=== PATIENT | female | born 1970 | race Hispanic/Latino ===

== ENCOUNTER 2023-10-09 11:29 | Outpatient (CLI) | payer OTHER | END 2023-10-09 11:30 | disposition home or self-care (01) | LOC: BICRAD 11:29 | PROVIDERS: ATTEND Nurse Practitioner Family | DX: M25.562 Pain in left knee (principal); M17.12 Unilateral primary osteoarthritis, left knee ==

== ENCOUNTER 2024-01-04 01:26 | Inpatient (IN) | payer SELFPAY ==
[2024-01-04 02:20] LABS: #Basophils 0.03 10x3/uL (0.0-0.2); #Eosinphils Less than 0.03 10x3/uL (0.0-0.7); %Basophils 0.2 % (0.0-1.0); %Lymphocytes 13.6 % (21.0-51.0); %Monocytes 6.7 % (0.0-10.0); %Neutrophils 78.7 % (42.0-75.0); Hematocrit 47.9 % (36.0-47.0); Hemoglobin 15.9 g/dL (12.0-16.0); Mean Corpuscular HGB CONC 33.2 g/dL (32.0-36.0); Mean Corpuscular Hemoglobin 28.9 pg (27.0-31.0); Mean Corpuscular Volume 86.9 fL (78.0-98.0); Mean Platelet Volume 8.8 fL (7.4-10.4); Platelet Count 367 10x3/uL (130-400); RBC Distribution Width 13.2 % (11.5-14.5); Red Blood Cell (RBC) Count 5.51 mill/uL (4.20-5.40)
[2024-01-04] MEDS ORDERED: Ketorolac Tromethamine 30 MG (1 mL) VIAL ONE (02:32)
[2024-01-04] MEDS ORDERED: Ondansetron PF 4 MG/2 ML Vial ONE (02:32)
[2024-01-04 02:38] LABS: ALT (SGPT) 13 U/L (8-55); AST (SGOT) 20 U/L (5-34); Alkaline Phosphatase 68 U/L (40-110); Anion Gap 19 mmol/L (10-20); BUN (Urea Nitrogen) 17 mg/dL (9.8-20.1); Bilirubin, Total 0.3 mg/dL (0.2-1.2); Calc. Creatinine Clearance 0 mL/min (70-130); Calcium 8.3 mg/dL (7.8-10.44); Carbon Dioxide 13 mmol/L (22-29); Chloride 104 mmol/L (98-107); Estimated GFR 55; Globulin 4.9 g/dL (2.4-3.5); Glucose 240 mg/dL (70-105); Potassium 4.4 mmol/L (3.5-5.1); Protein, Total 7.9 g/dL (6.0-8.3); Sodium 132 mmol/L (136-145)
[2024-01-04 02:43] LABS: Troponin I 0.183 ng/mL (< 0.028)
[2024-01-04] MEDS ORDERED: Piperacillin/Tazobactam 3.375 GM VIAL ONE (04:25)
[2024-01-04] MEDS ORDERED: Sodium Chloride 0.9% 100 ML ONE (04:25)
[2024-01-04] MEDS ORDERED: Acetaminophen 650 MG Suppository PR PRN (04:57)
[2024-01-04] MEDS ORDERED: Glucagon 1 MG/ML KIT IM PRN (04:59)
[2024-01-04] MEDS ORDERED: Dextrose 50% Abboject 50 ML SYRINGE SLOW IVP PRN (04:59)
[2024-01-04] MEDS ORDERED: Insulin Lispro 100 UNIT/ML 10 ML VIAL SC PRN (04:59)
[2024-01-04] MEDS ORDERED: Dextrose 5% in Water 1,000 ML IV PRN (04:59)
[2024-01-04 05:51] LABS: Bacteria/HPF None Seen HPF (None Seen); Bilirubin Negative (Negative); Blood, Urine Negative (Negative); CAUTI Indications for Culture Pelvic or flank pain; Clarity Clear (Clear); Glucose, Urine (Dipstick) Normal (Negative); Ketone, Urine Negative (Negative); Leukocyte Negative Leu/uL (Negative); Nitrite Negative (Negative); Protein, Urine (Dipstick) 30 mg/dL (Neg-Trace); RBC/HPF None Seen HPF (0-3); Specific Gravity, Urine Greater than 1.060 (1.002-1.036); Urobilinogen Normal mg/dL (Less than 2)
[2024-01-04 05:52] LABS: Urine Culture Reflex No No
[2024-01-04] MEDS ORDERED: Sodium Chloride 0.9% 1,000 ML IV SCH (06:01)
[2024-01-04 06:07] LABS: Base Excess -13.9 mEq/L (-2.0 to +3.0); Calcium, Ionized (venous) 1.02 mmol/L (1.16-1.32); Chloride (VBG) 105 mmol/L (98-106); Hematocrit-VBG 46 % (36.0-47.0); Hemoglobin (Hb) 15.7 g/dL (11.7-16.0); Potassium (VBG) 4.58 mmol/L (3.70-5.30); Sodium 136 mmol/L (133-146); pH (venous) 7.271 (7.32-7.43)
[2024-01-04] MEDS: Sodium Bicarb 50 MEQ/50 ML Abboject 8.4% SYRINGE IVP SCH (06:32)
[2024-01-04] MEDS: Morphine 4 MG/ML VIAL SLOW IVP SCH (06:32)
[2024-01-04] MEDS: metroNIDAZOLE 500 MG in Premix 1 BAG IVPB SCH (06:32)
[2024-01-04] MEDS: Vancomycin (BATCH) 2 GM in Premix 1 BAG IVPB SCH (06:34)
[2024-01-04 06:47] LABS: Lactic Acid 7.71 mmol/L (0.5-2.2)
[2024-01-04] MEDS: Ondansetron PF 4 MG/2 ML Vial IVP PRN (07:00)
[2024-01-04] MEDS: Cefepime 2 GM in Sodium Chloride 0.9% 100 ML IVPB SCH (07:12)
[2024-01-04] MEDS: Sodium Bicarbonate 150 MEQ in Dextrose 5% in Water 1,000 ML IV SCH ×2 (07:12→16:10)
[2024-01-04 07:14] VITALS: BMI 38.2
[2024-01-04 07:22] LABS: Troponin I 0.245 ng/mL (< 0.028)
[2024-01-04] MEDS: Enoxaparin 40 MG (0.4 mL) SYRINGE SC SCH (08:32)
[2024-01-04] MEDS: Sodium Chloride 0.9% 1,000 ML IV SCH ×2 (08:33→12:44)
[2024-01-04 10:36] LABS: Lactic Acid 11.18 mmol/L (0.5-2.2)
[2024-01-04 11:01] LABS: Troponin I 0.389 ng/mL (< 0.028)
[2024-01-04] MEDS ORDERED: Iopamidol-370 76% 500 ML MDV (1 ML CHARGE) ONE (11:11)
[2024-01-04] MEDS: Ipratropium/Albuterol 3 ML NEB NEB SCH (11:51)
[2024-01-04 12:18] LABS: Base Excess (BEa) -19.7 mEq/L (-2.0 to +3.0); Calcium, Ionized (arterial) 1.06 mmol/L (1.12-1.30); Carboxyhemoglobin (COHb) 0.3 gm% (0.0-3.0); Hematocrit-ABG 47 % (36.0-47.0); O2 Tension (PaO2), arterial 138.9 mmHg (80.0-100.0); Potassium - ABG Lab 4.85 mmol/L (3.70-5.30)
[2024-01-04] MEDS: Vancomycin (BATCH) 1.75 GM in Premix 1 BAG IVPB SCH (12:44)
[2024-01-04] MEDS: Insulin Lispro 100 UNIT/ML 10 ML VIAL SC PRN (12:44)
[2024-01-04] MEDS: Morphine 2 MG/ML VIAL SLOW IVP PRN (12:46)
[2024-01-04] MEDS: Sodium Chloride 0.9% 500 ML IV SCH (12:47)
[2024-01-04 12:57] LABS: Actual Bicarbonate (HCO3a) 7.2 mEq/L (22-28); CO2 Tension 21.1 mmHg (35.0-45.0); pH, Arterial 7.148 (7.35-7.45)
[2024-01-04 12:58] LABS: Puncture Site Right Radial artery
[2024-01-04 13:55] LABS: Base Excess (BEa) -19.8 mEq/L (-2.0 to +3.0); Calcium, Ionized (arterial) 1.06 mmol/L (1.12-1.30); Carboxyhemoglobin (COHb) 0.4 gm% (0.0-3.0); Hematocrit-ABG 46 % (36.0-47.0); Hemoglobin (Hb) 15.7 g/dL (12.0-16.0); O2 Tension (PaO2), arterial 293.7 mmHg (80.0-100.0); Potassium - ABG Lab 4.91 mmol/L (3.70-5.30)
[2024-01-04 14:11] LABS: ALV-art Gradient 75.575 mmHg (0-20); Actual Bicarbonate (HCO3a) 6.5 mEq/L (22-28); CO2 Tension 18.3 mmHg (35.0-45.0); Puncture Site Right Radial artery; pH, Arterial 7.166 (7.35-7.45)
[2024-01-04] MEDS: NOREPINEPHRINE 8 MG/250 ML-D5W 250 ML ONE (15:00)
[2024-01-04] MEDS: Fentanyl CADD 100 ML IV SCH (15:00)
[2024-01-04 15:42] LABS: Base Excess (BEa) -20.8 mEq/L (-2.0 to +3.0); Calcium, Ionized (arterial) 1.05 mmol/L (1.12-1.30); Carboxyhemoglobin (COHb) 0.3 gm% (0.0-3.0); Hematocrit-ABG 45 % (36.0-47.0); Hemoglobin (Hb) 15.3 g/dL (12.0-16.0); O2 Tension (PaO2), arterial 406.7 mmHg (80.0-100.0); Potassium - ABG Lab 5.21 mmol/L (3.70-5.30)
[2024-01-04 15:47] LABS: Puncture Site Left Radial artery
[2024-01-04] MEDS ORDERED: Propofol 1,000 MG/100 ML VIAL IV PRN (16:00)
[2024-01-04] MEDS ORDERED: Morphine 2 MG/ML VIAL SLOW IVP PRN (16:00)
[2024-01-04] MEDS ORDERED: Propofol BOLUS 1,000 MG/100 ML VIAL IV PRN (16:00)
[2024-01-04] MEDS ORDERED: Fentanyl BOLUS 250 ML IVPB PRN (16:00)
[2024-01-04] MEDS ORDERED: DISCONTINUE PREVIOUS NARCOTIC PAIN MEDICATIONS AND BENZODIAZEPINES FS SCH (16:00)
[2024-01-04] MEDS: Lorazepam 2 MG/ML VIAL SLOW IVP PRN (16:48)
[2024-01-04] MEDS: methylPREDNISolone Sod Succ 40 MG VIAL IVP SCH (17:10)
[2024-01-04] MEDS: Phenylephrine 40 MG/NS 250 ML 40 MG in Premix 1 BAG IVPB SCH (17:57)
[2024-01-04] MEDS: Fentanyl CADD 100 ML ONE (19:37)
[2024-01-04] MEDS: Metoprolol Tartrate 25 MG TAB PO SCH (19:40)
[2024-01-04] MEDS: NOREPINEPHRINE 8 MG/250 ML-D5W 250 ML IVPB SCH (19:56)
[2024-01-04 21:17] LABS: Influenza A by NAA DETECTED (NotDetected); Influenza B by NAA Not Detected (NotDetected); SARS-CoV-2 NAA Rapid Test Not Detected (NotDetected)
[2024-01-04] MEDS: Sodium Chloride 0.9% 500 ML IVPB SCH (21:57)
[2024-01-04 22:10] VITALS: TEMP 98.7
[2024-01-04 22:54] LABS: ALT (SGPT) 525 U/L (8-55); AST (SGOT) 776 U/L (5-34); Albumin 2.7 g/dL (3.5-5.0); Alkaline Phosphatase 72 U/L (40-110); Anion Gap 33 mmol/L (10-20); BUN (Urea Nitrogen) 25 mg/dL (9.8-20.1); Bilirubin, Total 1.1 mg/dL (0.2-1.2); Calc. Creatinine Clearance 57 mL/min (70-130); Calcium 7.9 mg/dL (7.8-10.44); Carbon Dioxide Less than 8 mmol/L (22-29); Chloride 105 mmol/L (98-107); Estimated GFR 34; Globulin 4.4 g/dL (2.4-3.5); Glucose 159 mg/dL (70-105); Potassium 4.7 mmol/L (3.5-5.1); Protein, Total 7.1 g/dL (6.0-8.3); Sodium 139 mmol/L (136-145)
[2024-01-04 23:14] LABS: Lactic Acid 15.83 mmol/L (0.5-2.2)
[2024-01-04] MEDS: Sodium Bicarb 50 MEQ/50 ML Abboject 8.4% SYRINGE ONE ×2 (23:25→23:51)
[2024-01-04] MEDS ORDERED: Vasopressin In 0.9 % NaCl 40 UNIT in Premix 1 BAG IV SCH (23:30)
[2024-01-04] MEDS: Albumin 25% 200 ML ONE (23:46)
[2024-01-05] MEDS: Albumin 5% 0 ML ONE (00:29)
[2024-01-05] MEDS: Oseltamivir 6 MG/ML ORAL SUSP PER TUBE SCH (00:52)
[2024-01-05] MEDS ORDERED: EPINEPHrine 1 MG/10 ML Abboject SYRINGE ONE (01:37)
[2024-01-05] MEDS ORDERED: Sodium Bicarb 50 MEQ/50 ML Abboject 8.4% SYRINGE ONE ×2 (01:37→01:47)
[2024-01-05] MEDS ORDERED: methylPREDNISolone Sod Succ/PF 125 MG/2 ML VIAL IVP SCH (01:45)
[2024-01-05 01:54] LABS: Actual Bicarbonate (HCO3a) 60.8 mEq/L (22-28); CO2 Tension 46.5 mmHg (35.0-45.0); Carboxyhemoglobin (COHb) 0.3 gm% (0.0-3.0); Hematocrit-ABG 25 % (36.0-47.0); Hemoglobin (Hb) 8.6 g/dL (12.0-16.0); O2 Tension (PaO2), arterial 344.1 mmHg (80.0-100.0); Potassium - ABG Lab 4.04 mmol/L (3.70-5.30)
[2024-01-05 02:03] LABS: Base Excess (BEa) 37.5 mEq/L (-2.0 to +3.0)
[2024-01-05 02:04] LABS: ALV-art Gradient 310.775 mmHg (0-20); Puncture Site L A-LINE
[2024-01-05] MEDS ORDERED: Oseltamivir 6 MG/ML ORAL SUSP PER TUBE SCH ×2 (09:00→12:00)
[2024-01-05 11:30] LABS: Amphetamine Not Detected (NotDetected); Barbiturates Screen Not Detected (NotDetected); Benzodiazepine Screen Not Detected (NotDetected); Cocaine Metabolite Screen Not Detected (NotDetected); Methadone Not Detected (NotDetected); Methamphetamine Not Detected (NotDetected); Opiate Screen Not Detected (NotDetected); Oxycodone Screen Not Detected (NotDetected); Phencyclidine (PCP) Not Detected (NotDetected); THC/Cannabinoid Screen Not Detected (NotDetected); Tricyclic Screen Not Detected (NotDetected)
[2024-01-05 11:33] LABS: Acetaminophen Less than 10 mcg/mL (Less than 10); Alcohol Less than 10.0 mg/dL (Less than 10); Salicylate Less than 8.0 mg/dL (Less than 8.0)
[2024-01-05] MEDS ORDERED: Vancomycin (BATCH) 1.75 GM in Premix 1 BAG IVPB SCH (12:00)
[2024-01-09 10:10] LABS: Actual Bicarbonate (HCO3a) 5.8 mEq/L (22-28); pH, Arterial 7.148 (7.35-7.45)
[2024-01-09 10:12] LABS: Actual Bicarbonate (HCO3v) 10.9 mEq/L (22-28)
[2024-01-09 10:14] LABS: pH, Arterial 7.734 (7.35-7.45)
== END 2024-01-05 02:15 | disposition expired | DRG 871 ==
LOC: ERS 01:26 → IMCU/EMU 05:51 → CCU 14:30
PROVIDERS: ADMIT Internal Medicine; ATTEND Internal Medicine
PROC: 0BH17EZ Insertion of Endotracheal Airway into Trachea, Via Natural or Artificial Opening (ICD-10-PCS; principal; 2024-01-04)
PROC: 02HV33Z Insertion of Infusion Device into Superior Vena Cava, Percutaneous Approach (ICD-10-PCS; 2024-01-04)
PROC: 3E043XZ Introduction of Vasopressor into Central Vein, Percutaneous Approach (ICD-10-PCS; 2024-01-04)
PROC: 04HY32Z Insertion of Monitoring Device into Lower Artery, Percutaneous Approach (ICD-10-PCS; 2024-01-04)
PROC: 4A133B1 Monitoring of Arterial Pressure, Peripheral, Percutaneous Approach (ICD-10-PCS; 2024-01-04)
PROC: 4A133J1 Monitoring of Arterial Pulse, Peripheral, Percutaneous Approach (ICD-10-PCS; 2024-01-04)
PROC: 4A133R1 Monitoring of Arterial Saturation, Peripheral, Percutaneous Approach (ICD-10-PCS; 2024-01-04)
PROC: 3E033XZ Introduction of Vasopressor into Peripheral Vein, Percutaneous Approach (ICD-10-PCS; 2024-01-04)
PROC: 30233J1 Transfusion of Nonautologous Serum Albumin into Peripheral Vein, Percutaneous Approach (ICD-10-PCS; 2024-01-04)
PROC: 5A1935Z Respiratory Ventilation, Less than 24 Consecutive Hours (ICD-10-PCS; 2024-01-04)
PROC: 5A09357 Assistance with Respiratory Ventilation, Less than 24 Consecutive Hours, Continuous Positive Airway Pressure (ICD-10-PCS; 2024-01-04)
PROC: 3E03329 Introduction of Other Anti-infective into Peripheral Vein, Percutaneous Approach (ICD-10-PCS; 2024-01-04)
PROC: 5A12012 Performance of Cardiac Output, Single, Manual (ICD-10-PCS; 2024-01-05)
DX: A41.89 Other specified sepsis (principal); J96.01 Acute respiratory failure with hypoxia; R65.21 Severe sepsis with septic shock; E87.20 Acidosis, unspecified; N17.9 Acute kidney failure, unspecified; I24.89 Other forms of acute ischemic heart disease; Z66 Do not resuscitate; J10.1 Influenza due to other identified influenza virus with other respiratory manifestations; K57.30 Diverticulosis of large intestine without perforation or abscess without bleeding; R79.89 Other specified abnormal findings of blood chemistry; E11.9 Type 2 diabetes mellitus without complications; E66.9 Obesity, unspecified; Z98.891 History of uterine scar from previous surgery; Z68.38 Body mass index [BMI] 38.0-38.9, adult; Z71.3 Dietary counseling and surveillance; Z79.85 Long-term (current) use of injectable non-insulin antidiabetic drugs; Z79.84 Long term (current) use of oral hypoglycemic drugs; Z79.4 Long term (current) use of insulin
CPT/HCPCS: 36415; 36416; 36600; 71045; 71275; 80053; 80306; 80307; 81001; 82010; 82805; 83605; 83690; 83880; 84145; 84484; 85025; 87040; 93005; 93010; 94002; 94003; 94640; 94660; 96361; 96374; 96375; J0171; J0692; J1650; J1815; J1885; J2060; J2272; J2405; J2543; J2919; J3010; J3370; J7030; J7070; J7620; P9047; Q9967